=== PATIENT | female | born 1970 | race Two or more races ===

== ENCOUNTER 2017-09-07 19:38 | Emergency (ER) | payer OTHER ==
[~2017-09-07] VITALS: Ht 162.6 cm; Wt 88.5 kg
== END 2017-09-07 23:02 | disposition home or self-care (01) ==
LOC: ER 19:38
DX: J06.9 Acute upper respiratory infection, unspecified (principal); D64.9 Anemia, unspecified

== ENCOUNTER 2018-11-26 09:57 | Emergency (ER) | payer OTHER ==
[~2018-11-26] VITALS: Ht 162.6 cm; Wt 88.9 kg
== END 2018-11-26 16:16 | disposition home or self-care (01) ==
LOC: ER 09:57
DX: I16.0 Hypertensive urgency (principal); I10 Essential (primary) hypertension; R51 Headache; M54.2 Cervicalgia